=== PATIENT | male | born 1975 | race Caucasian/White ===

== ENCOUNTER 2018-12-18 16:47 | Emergency (ER) | payer OTHER, MEDICAID ==
[~2018-12-18] VITALS: Ht 177.8 cm; Wt 88.5 kg
[2018-12-18] MEDS ORDERED: LOSA50 PO (17:22)
== END 2018-12-18 17:48 | disposition home or self-care (01) ==
LOC: ER 16:47
DX: S93.402A Sprain of unspecified ligament of left ankle, initial encounter (principal); X50.9XXA Other and unspecified overexertion or strenuous movements or postures, initial encounter; I10 Essential (primary) hypertension
CPT/HCPCS: 73610; 99283-25